=== PATIENT | male | born 1980 | race Caucasian/White ===

== ENCOUNTER 2016-05-17 21:41 | Emergency (ER) | payer OTHER ==
[~2016-05-17] VITALS: Ht 167.6 cm; Wt 65.7 kg
[~2016-05-17 21:41] MED LIST: CHLO1TAB15 PO; DULO60CA44 PO; TOPI50TA16 PO
[2016-05-17 21:51] VITALS: TEMP 36.6; Ht 167.6 cm; Wt 65.7 kg
[2016-05-17] MEDS ORDERED: CITA40TA12 PO (22:10)
[2016-05-17 23:20] LABS: BASO % 0.3 %; BASO ABS # 0.02 K/uL (0-0.2); COMPLETE YES; EOS % 1.8 %; IG% 0.5 %; LYMPH % 32.1 %; LYMPH ABS # 2.01 K/uL (1.2-3.4); MEAN CELL VOLUME 88.8 fL (80-100); MEAN CORPUSCULAR HGB CONC 34.9 g/dl (32-36); MEAN PLATELET VOLUME 10.5 fL (7.4-10.4); NEUT % 54.3 %; PLATELET COUNT 192 K/uL (130-400); RED BLOOD COUNT 5.52 M/uL (4.7-6.1); WHITE BLOOD COUNT 6.26 K/uL (4.8-10.8)
--- NOTE | 2016-05-17 23:38 | EMERGENCY ROOM VISIT NOTE ---
History Report prepared by Ed: Nydia Morgan Under the Supervision of: Dr. Angela Dong M.D. First contact with patient: 23:07 Chief Complaint: MENTAL HEALTH EVALUATION Stated Complaint: [facility]MR History of Present Illness The patient is a 36 year old male who presents to the Emergency Room via police for a mental health evaluation for worsened depression. The patient was recently staying at his friend's house but moved back to his parent's house recently. Tonight, his mother did not want him staying in her house due to his history of drug problems so she took him to stay at [facility]. He did not want to stay at [facility] but his mother would not take him anywhere else to stay. Police were eventually called to the group home. He requested to come to the ER for a mental health evaluation due to feeling depressed. He states that things are not going very well right now for him and he is feeling miserable. The patient has had suicidal thoughts in the past, most recently 6 months ago. He is not currently feeling suicidal or homicidal. He denies any substance use today. Denies recent illnesses or other complaints. 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 A total of 10 systems reviewed and were otherwise negative. Past Medical & Surgical Medical Problems: (1) ALCOHOL ABUSE-UNSPEC (2) ASTHMA, UNSPECIFIED (3) BIPOL I, MOST RECENT EPISODE (OR CURRENT) UNSPECIFIED (4) Bipolar II disorder (5) Hepatitis C (6) OPIOID DEPENDENCE-UNSPEC (7) PNEUMONIA, ORGANISM NOS (8) SUICIDAL IDEATION (9) TOBACCO USE DISORDER Family History Hypertension Social History Smoking Status: Current Every Day Smoker Alcohol Use: heavy Drug Use: heroin, marijuana, other Marital Status: single Housing Status: lives alone Occupation Status: employed Current/Historical Medications Scheduled Citalopram Hydrobromide (Celexa), 40 MG PO QAM Allergies Coded Allergies: No Known Allergies (Unverified , NONE, 05/17/16) Physical Exam Vital Signs Date Time Temp Pulse Resp B/P Pulse Ox O2 Delivery O2 Flow Rate FiO2 05/18/16 07:16 72 16 125/70 95 05/17/16 23:44 74 114/67 96 Room Air 05/17/16 21:51 36.6 79 18 132/87 97 Room Air Physical Exam Vital signs reviewed. General: Well-appearing 36 year old male, in no significant distress. HEENT: No scleral icterus, PERRLA, neck supple. Atraumatic. Cardiovascular: Regular rate and rhythm, no extra sounds. Pulmonary: Clear to auscultation bilaterally, normal work of breathing. Abdomen: Soft, nontender, nondistended, positive bowel sounds. Musculoskeletal: Atraumatic, no peripheral edema. Neurologic: Patient awake alert and oriented x 3, full strength in all 4 extremities. Cranial nerves 2 through 12 grossly intact. Skin: Warm, dry, no rash Psych: No suicidal or homicidal ideation. Medical Decision & Procedures Laboratory Results 05/17/16 22:45 Red Blood Count 5.52, Mean Corpuscular Volume 88.8, Mean Corpuscular Hemoglobin 31.0, Mean Corpuscular Hemoglobin Concent 34.9, Mean Platelet Volume 10.5, Neutrophils (%) (Auto) 54.3, Lymphocytes (%) (Auto) 32.1, Monocytes (%) (Auto) 11.0, Eosinophils (%) (Auto) 1.8, Basophils (%) (Auto) 0.3, Neutrophils # (Auto ) 3.40, Lymphocytes # (Auto) 2.01, Monocytes # (Auto) 0.69, Eosinophils # (Auto ) 0.11, Basophils # (Auto) 0.02 05/17/16 22:45 Test 05/17/16 22:45 White Blood Count 6.26 K/uL (4.8-10.8) Red Blood Count 5.52 M/uL (4.7-6.1) Hemoglobin 17.1 g/dL (14.0-18.0) Hematocrit 49.0 % (42-52) Mean Corpuscular Volume 88.8 fL (80-100) Mean Corpuscular Hemoglobin 31.0 pg (25-34) Mean Corpuscular Hemoglobin Concent 34.9 g/dl (32-36) Platelet Count 192 K/uL (130-400) Mean Platelet Volume 10.5 fL (7.4-10.4) Neutrophils (%) (Auto) 54.3 % Lymphocytes (%) (Auto) 32.1 % Monocytes (%) (Auto) 11.0 % Eosinophils (%) (Auto) 1.8 % Basophils (%) (Auto) 0.3 % Neutrophils # (Auto) 3.40 K/uL (1.4-6.5) Lymphocytes # (Auto) 2.01 K/uL (1.2-3.4) Monocytes # (Auto) 0.69 K/uL (0.11-0.59) Eosinophils # (Auto) 0.11 K/uL (0-0.5) Basophils # (Auto) 0.02 K/uL (0-0.2) RDW Standard Deviation 42.7 fL (36.4-46.3) RDW Coefficient of Variation 13.0 % (11.5-14.5) Immature Granulocyte % (Auto) 0.5 % Immature Granulocyte # (Auto) 0.03 K/uL (0.00-0.02) Anion Gap 10.0 mmol/L (3-11) Est Creatinine Clear Calc Drug Dose 78.2 ml/min Estimated GFR () 90.9 Estimated GFR (Non- 78.4 BUN/Creatinine Ratio 14.8 (10-20) Calcium Level 8.9 mg/dl (8.5-10.1) Total Bilirubin 0.4 mg/dl (0.2-1) Direct Bilirubin 0.1 mg/dl (0-0.2) Aspartate Amino Transf (AST/SGOT) 57 U/L (15-37) Alanine Aminotransferase (ALT/SGPT) 96 U/L (12-78) Alkaline Phosphatase 109 U/L (45-117) Total Protein 7.1 gm/dl (6.4-8.2) Albumin 3.6 gm/dl (3.4-5.0) Salicylates Level < 1.7 mg/dl (2.8-20) Acetaminophen Level < 2 ug/ml (10-30) Ethyl Alcohol mg/dL < 3.0 mg/dl (0-3) Laboratory results per my review. ED Course 2333: Past medical records reviewed. The patient was evaluated in room A5. A complete history and physical examination was performed. 0710: Upon reevaluation, the patient was resting comfortably. I discussed findings with the patient. He verbalized agreement of the treatment plan. The patient was discharged home. Medical Decision Differential diagnosis: Etiologies such as mood disorder, infection, hypoglycemia, electrolyte abnormalities, cardiac sources, intracerebral event, toxicologic, neurologic, as well as others were entertained. This patient was evaluated and appeared to be in no significant distress. Patient was medically cleared and evaluated by mental health. Patient is felt to be stable for discharge. He is not currently suicidal or homicidal. He does have multiple situational stressors. He was given contact information for local homeless shelters as his family does not seem to want to take him in. Patient will return to the ER for worsening of symptoms or any medical concerns. Impression Primary Impression: Mood disorder Scribe Attestation The scribe's documentation has been prepared under my direction and personally reviewed by me in its entirety. I confirm that the note above accurately reflects all work, treatment, procedures, and medical decision making performed by me. Departure Information Dispostion Home / Self-Care Referrals [facility] Patient Instructions [facility] Additional Instructions Diagnosis: Mood disorder Please go to a homeless group home this evening or contact a friend. Follow-up with a primary care physician or [facility]. Outpatient psychiatric follow-up as recommended by mobile crisis. Return to the ER for worsening of symptoms or any medical concerns.
[2016-05-17 23:40] LABS: BUN/CREATININE RATIO 14.8 (10-20); CALCIUM 8.9 mg/dl (8.5-10.1); CREATININE 1.2 mg/dl (0.60-1.40); POTASSIUM 3.6 mmol/L (3.5-5.1)
[2016-05-17 23:42] LABS: ACETAMINOPHEN < 2 ug/ml (10-30)
[2016-05-18 07:16] VITALS: BP 125/70; PULSE 72; O2SAT 95
== END 2016-05-18 07:16 | disposition home or self-care (01) ==
LOC: C.EDB 21:43 → C.EDA 05-18 07:16
DX: F31.81 Bipolar II disorder (principal); F17.200 Nicotine dependence, unspecified, uncomplicated; F10.10 Alcohol abuse, uncomplicated; J45.909 Unspecified asthma, uncomplicated; B19.20 Unspecified viral hepatitis C without hepatic coma; F11.20 Opioid dependence, uncomplicated

== ENCOUNTER 2016-08-26 18:29 | Emergency (ER) | payer OTHER ==
[~2016-08-26] VITALS: Ht 170.2 cm; Wt 53.5 kg
[~2016-08-26 18:29] MED LIST changes: -CHLO1TAB15 PO; +CITA40TA12 PO; -DULO60CA44 PO; -TOPI50TA16 PO
[2016-08-26 18:46] VITALS: TEMP 36.7; Ht 170.2 cm; Wt 53.5 kg
[2016-08-26 18:58] VITALS: O2SAT 94
[2016-08-26] MEDS ORDERED: HALOPERIDOL LACTATE 5 MG/ML 1 ML VIAL IM STA (19:02)
[2016-08-26] MEDS ORDERED: LORAZEPAM 2 MG/ML 1 ML VIAL IM STA (19:02)
--- NOTE | 2016-08-26 19:07 | EMERGENCY ROOM VISIT NOTE ---
History Report prepared by Ed: Tu Kingsley Under the Supervision of: Dr. Boy Savage M.D. First contact with patient: 18:44 Stated Complaint: ANXIETY / POSS. METHADONE INTAKE History of Present Illness The patient is a 36 year old male who presents to the Emergency Room with an altered mental status. The nurse states that the patient lives in [facility] and is currently on probation. She reports that the patient was picked up from a homeless retirement by the police. The nurse notes that at the police station, the patient asked his consular officer for alcohol. She notes that the patient appeared to be under the influence. The nurse reports that when the patient was told that he was going into a cell, he lashed out and began complaining that he needed medical attention. She states that there were track cerna on his left and right AC, and it is suspected the he took methadone. The patient states that it feels like he is losing his mind and he is messed up. He reports that he moved to [place] and lives in a nursing home house. The patient states that he was on his way to a friend's house, but he walked up to the wrong door and that is why he was at the police department. He denies doing anything else, using drugs, using methadone, and using alcohol. The patient reports that he does not know where he is. He states that it feels like someone gave him acid, he is hallucinating, and he is going to pass out. The patient notes that the only medication he takes in Celexa, but he missed some of his doses. He reports that he does not have a history of anxiety. HPI and ROS are limited secondary to the patient's altered mental status. Source of History: patient, nursing staff History Limited By: AMS Review of Systems ROS is limited secondary to his altered mental status. Past Medical & Surgical Medical Problems: (1) ALCOHOL ABUSE-UNSPEC (2) ASTHMA, UNSPECIFIED (3) BIPOL I, MOST RECENT EPISODE (OR CURRENT) UNSPECIFIED (4) Bipolar II disorder (5) Hepatitis C (6) OPIOID DEPENDENCE-UNSPEC (7) PNEUMONIA, ORGANISM NOS (8) SUICIDAL IDEATION (9) TOBACCO USE DISORDER Family History Hypertension Social History Smoking Status: Current Every Day Smoker Alcohol Use: heavy Drug Use: heroin, marijuana, other Marital Status: single Housing Status: lives alone Occupation Status: employed Current/Historical Medications Scheduled Citalopram Hydrobromide (Celexa), 40 MG PO QAM Allergies Coded Allergies: No Known Allergies (Unverified , NONE, 08/26/16) Physical Exam Vital Signs Date Time Temp Pulse Resp B/P Pulse Ox O2 Delivery O2 Flow Rate FiO2 08/27/16 08:54 94 16 134/91 98 08/27/16 07:33 103 16 130/93 98 08/27/16 05:36 82 08/27/16 02:30 80 08/26/16 22:58 84 08/26/16 22:39 81 17 95 08/26/16 22:19 141/102 08/26/16 22:09 90 15 93 08/26/16 22:05 110/62 08/26/16 22:04 81 16 110/62 95 08/26/16 21:39 89 18 93 08/26/16 21:34 87 15 95 08/26/16 21:04 93 18 92 08/26/16 20:34 94 17 94 08/26/16 20:04 102 19 92 08/26/16 19:34 125 22 92 08/26/16 19:29 123 21 144/76 08/26/16 19:24 116 24 08/26/16 19:19 119 86 08/26/16 19:14 117 21 08/26/16 19:09 116 29 94 08/26/16 19:05 144/76 08/26/16 19:04 115 08/26/16 18:58 94 Room Air 08/26/16 18:54 124 20 93 08/26/16 18:49 123 16 97 08/26/16 18:49 124 08/26/16 18:46 36.7 116 18 132/87 94 Room Air 08/26/16 18:44 120 13 95 08/26/16 18:39 119 18 90 08/26/16 18:35 132/87 Physical Exam GENERAL: Patient awake, alert, oriented x 3. Patient follows commands. Patient does not appear toxic. Patient is adequately hydrated and well- nourished. Appears agitated and to be hallucinating. SKIN: No erythema, pallor, cyanosis or rash HEENT: Normal head, pupils equal, reactive to light and accommodation. Oral cavity and posterior pharynx appear normal. Neck: Without adenopathy, no neck vein distention. LUNGS: Clear to auscultation. No wheezes, no rales, no rhonchi. HEART: Tachycardic rate. No murmurs. No gallops. No rubs ABDOMEN: No masses, no rebound, no hepatomegaly or splenomegaly. Umbilical hernia. GENITALIA: No signs of trauma or infection to the penis or scrotum, no penile discharge. EXTREMITIES: No signs of trauma or infection. NEUROLOGIC: No focal deficit, uses all extremities, hallucinating, agitated. PSYCHIATRIC: Patient is awake alert but appears to be hallucinating. The patient is confused. He is very agitated. The patient is currently not suicidal but does appear despondent. Medical Decision & Procedures ER Provider Diagnostic Interpretation: X ray results are stated below per my interpretation and the radiologist's interpretation. CHEST ONE VIEW PORTABLE HISTORY: altered mental status COMPARISON: Chest 01/19/2015. FINDINGS: The lungs are clear. Cardiac silhouette is normal in size. No pleural effusions. No pneumothorax. Old, healed left-sided rib fractures. IMPRESSION: No acute process. Electronically signed by: Alfredito Pleitez M.D. 08/26/2016 7:38 PM Dictated Date/Time: 08/26/2016 7:37 PM Laboratory Results 08/26/16 19:23 Red Blood Count 5.32, Mean Corpuscular Volume 86.3, Mean Corpuscular Hemoglobin 30.6, Mean Corpuscular Hemoglobin Concent 35.5, Mean Platelet Volume 9.1, Neutrophils (%) (Auto) 77.2, Lymphocytes (%) (Auto) 15.0, Monocytes (%) (Auto) 6.9, Eosinophils (%) (Auto) 0.5, Basophils (%) (Auto) 0.1, Neutrophils # (Auto) 7.22, Lymphocytes # (Auto) 1.40, Monocytes # (Auto) 0.65, Eosinophils # (Auto) 0.05, Basophils # (Auto) 0.01 08/26/16 19:23 Test 08/26/16 18:57 08/26/16 19:23 Urine Color YELLOW Urine Appearance CLEAR (CLEAR) Urine pH 6.0 (4.5-7.5) Urine Specific [place] 1.010 (1.000-1.030) Urine Protein NEG (NEG) Urine Glucose (UA) NEG (NEG) Urine Ketones TRACE (NEG) Urine Occult Blood NEG (NEG) Urine Nitrite NEG (NEG) Urine Bilirubin NEG (NEG) Urine Urobilinogen NEG (NEG) Urine Leukocyte Esterase NEG (NEG) Urine Opiates Screen NEG (NEG) Urine Methadone, Qualitative NEG (NEG) Urine Barbiturates NEG (NEG) Urine Phencyclidine (PCP) Level NEG (NEG) Ur Amphetamine/Methamphetamine POS (NEG) MDMA (Ecstasy) Screen POS (NEG) Urine Benzodiazepines Screen NEG (NEG) Urine Cocaine Metabolite POS (NEG) Urine Marijuana (THC) NEG (NEG) White Blood Count 9.36 K/uL (4.8-10.8) Red Blood Count 5.32 M/uL (4.7-6.1) Hemoglobin 16.3 g/dL (14.0-18.0) Hematocrit 45.9 % (42-52) Mean Corpuscular Volume 86.3 fL (80-100) Mean Corpuscular Hemoglobin 30.6 pg (25-34) Mean Corpuscular Hemoglobin Concent 35.5 g/dl (32-36) Platelet Count 239 K/uL (130-400) Mean Platelet Volume 9.1 fL (7.4-10.4) Neutrophils (%) (Auto) 77.2 % Lymphocytes (%) (Auto) 15.0 % Monocytes (%) (Auto) 6.9 % Eosinophils (%) (Auto) 0.5 % Basophils (%) (Auto) 0.1 % Neutrophils # (Auto) 7.22 K/uL (1.4-6.5) Lymphocytes # (Auto) 1.40 K/uL (1.2-3.4) Monocytes # (Auto) 0.65 K/uL (0.11-0.59) Eosinophils # (Auto) 0.05 K/uL (0-0.5) Basophils # (Auto) 0.01 K/uL (0-0.2) RDW Standard Deviation 41.4 fL (36.4-46.3) RDW Coefficient of Variation 13.2 % (11.5-14.5) Immature Granulocyte % (Auto) 0.3 % Immature Granulocyte # (Auto) 0.03 K/uL (0.00-0.02) Anion Gap 8.0 mmol/L (3-11) Est Creatinine Clear Calc Drug Dose 65.6 ml/min Estimated GFR () 90.9 Estimated GFR (Non- 78.4 BUN/Creatinine Ratio 10.7 (10-20) Calcium Level 9.2 mg/dl (8.5-10.1) Total Bilirubin 1.0 mg/dl (0.2-1) Aspartate Amino Transf (AST/SGOT) 77 U/L (15-37) Alanine Aminotransferase (ALT/SGPT) 147 U/L (12-78) Alkaline Phosphatase 99 U/L (45-117) Total Creatine Kinase 147 U/L (39-308) Total Protein 8.1 gm/dl (6.4-8.2) Albumin 4.5 gm/dl (3.4-5.0) Globulin 3.6 gm/dl (2.5-4.0) Albumin/Globulin Ratio 1.3 (0.9-2) Ethyl Alcohol mg/dL < 3.0 mg/dl (0-3) Laboratory results as stated above per my review. Medications Administered Medications (Trade) Dose Ordered Sig/Sumeet Route Start Time Stop Time Status Last Admin Dose Admin Haloperidol Lactate (Haldol Inj) 5 mg NOW STAT IM 08/26/16 19:02 08/26/16 19:06 DC 08/26/16 19:25 5 MG Lorazepam (Ativan Inj) 2 mg NOW STAT IM 08/26/16 19:02 08/26/16 19:06 DC 08/26/16 19:24 2 MG ECG Indication: altered mental status Rate (beats per minute): 121 Rhythm: sinus tachycardia Findings: no acute ischemic change, no ectopy ED Course 1843: Past medical records reviewed. The patient was evaluated in room A07. A complete history and physical examination was performed. 1854: I reviewed the patient's records, and he has a history of multiple heroine overdoses and depression. 1901: Ordered Ativan Inj 2mg IM, Haldol Inj 5mg IM. 1947: I reevaluated the patient. He is no longer hallucinating and is much calmer. The patient has yet to provide a urine sample. 2010: I discussed the patient's case with the patient's mother. The patient is calmer. He is willing to enter the hospital for psychiatric help, if he meets criteria for admission. Medical Decision I considered multiple diagnoses including: medication reaction, withdraw, schizophrenia, illicit drug use. Medication Reconciliation: I attest that I have personally reviewed the patient' s current medication list. The patient arrived extremely agitated and hallucinating. According to the patient's mother he has not been sleeping recently. The patient states that he was given methamphetamine. That is certainly possible and consistent with his physical findings. The patient has a prior history of bipolar. He has been taking his Celexa intermittently. The patient was given 5 mg of Haldol along with 2 mg of Ativan intramuscularly. Patient became much more calm and lucid. The patient remains depressed. Blood work was obtained. Please see above. Toxicology screening is pending. I signed the patient out to Dr. Emmanuel at 20: 20. Disposition is pending. Impression Primary Impression: Agitation Additional Impression: Hallucinations Scribe Attestation The scribe's documentation has been prepared under my direction and personally reviewed by me in its entirety. I confirm that the note above accurately reflects all work, treatment, procedures, and medical decision making performed by me. Departure Information Referrals No Doctor, Assigned (PCP) Problem Qualifiers
[2016-08-26 19:35] LABS: BASO % 0.1 %; BASO ABS # 0.01 K/uL (0-0.2); COMPLETE YES; EOS % 0.5 %; HEMATOCRIT 45.9 % (42-52); IG% 0.3 %; MEAN CELL VOLUME 86.3 fL (80-100); MEAN CORPUSCULAR HEMOGLOBIN 30.6 pg (25-34); MEAN CORPUSCULAR HGB CONC 35.5 g/dl (32-36); MEAN PLATELET VOLUME 9.1 fL (7.4-10.4); MONO % 6.9 %; NEUT % 77.2 %; PLATELET COUNT 239 K/uL (130-400); RED BLOOD COUNT 5.32 M/uL (4.7-6.1); WHITE BLOOD COUNT 9.36 K/uL (4.8-10.8)
--- NOTE | 2016-08-26 19:39 | DIAGNOSTIC IMAGING REPORT ---
CHEST ONE VIEW PORTABLE HISTORY: altered mental status COMPARISON: Chest 01/19/2015. FINDINGS: The lungs are clear. Cardiac silhouette is normal in size. No pleural effusions. No pneumothorax. Old, healed left-sided rib fractures. IMPRESSION: No acute process. Electronically signed by: Alfredito Pleitez M.D. 08/26/2016 7:38 PM Dictated Date/Time: 08/26/2016 7:37 PM
[2016-08-26 19:52] LABS: BUN/CREATININE RATIO 10.7 (10-20); CALCIUM 9.2 mg/dl (8.5-10.1); CREATININE 1.2 mg/dl (0.60-1.40); POTASSIUM 4.2 mmol/L (3.5-5.1)
[2016-08-26 19:55] LABS: ALB/GLOB RATIO 1.3 (0.9-2)
[2016-08-26 22:32] LABS: URINE APPEARANCE CLEAR (CLEAR); URINE BILIRUBIN NEG (NEG); URINE COLOR YELLOW; URINE NITRITE NEG (NEG); UROBILINOGEN NEG (NEG); ZZUR CULT IF INDIC CLEAN CATCH NO
[2016-08-26 22:37] LABS: MANUAL MICROSCOPIC REQUIRED? NO; REVIEW REQ? NO
[2016-08-26 23:35] LABS: BENZODIAZEPINE, URINE NEG (NEG); COCAINE,URINE POS (NEG); PHENCYCLIDINE, URINE NEG (NEG)
--- NOTE | 2016-08-27 01:56 | EMERGENCY ROOM VISIT NOTE ---
ED Visit Note First contact with patient: 20:29 This patient was signed out to me by Dr. Savage pending urine tox screen and mental health evaluation. The patient did receive Ativan and Haldol by Dr. Savage due to agitation. I did attempt to assess the patient when he was signed out to me but the patient was very somnolent and was unable to answer any questions. I did speak to his mother who felt that the patient needed to be hospitalized. According to the shoe parts caser he was making suicidal statements at the retirement house. The staff there were willing to fill out a 302 petition. Jonna from [facility] did attempt to assess the patient but he was still rather somnolent and could not be evaluated properly. The patient was signed out to Dr. Jaquez pending mental health evaluation and placement in a psychiatric facility.
--- NOTE | 2016-08-27 05:28 | EMERGENCY ROOM VISIT NOTE ---
ED Visit Note First contact with patient: 02:15 This case was signed up to me at change of shift by Dr. Emmanuel. The patient is currently sleeping. He had been sedated with Haldol and Ativan. Once the patient is more awake, he will be evaluated by [facility] for inpatient psychiatric care. 0525: The patient was finally awake enough to speak with him. He does admit to feeling increasingly depressed and is requesting inpatient psychiatric care. He does have a history of depression and one previous suicide attempt in October 2008 by overdose. The patient is not aware of the events of the evening. He was cooperative on my exam. He is willing to speak with staff from [facility] for further evaluation for inpatient psychiatric care. [facility] will be called for further evaluation involuntary admission. 0630: The case will be signed out to Dr. Resendez at change of shift pending the evaluation of [facility].
[2016-08-27 08:54] VITALS: BP 134/91; PULSE 94; O2SAT 98
--- NOTE | 2016-08-27 12:36 | EMERGENCY ROOM VISIT NOTE ---
ED Visit Note First contact with patient: 07:13 36 yr old male arrives for evaluation of acute altered mental status after doing methamphetamines. Initially seen last evening and heavily sedated to calm him down. Signed out to me by Dr Jaquez awaiting mental health evaluation. On my evaluation patient denies suicidal ideation, states he wishes discharge/ go to intermediate. Denies plan to harm self. There is no 302 on file and the [facility] worker has contacted person from last night that reportedly would 302 patient and she denies any 302 petition wish nor criteria. Patient states he feels safe going to intermediate. He agrees to return if worsening or if thoughts of harm to self/others develop. [facility]charged to [facility].
[2016-08-31 07:45] LABS: COCAINE, URINE 12600 NG/ML (CUTOFF=100)
== END 2016-08-27 08:55 | disposition home or self-care (01) ==
LOC: EDBD 18:29 → C.EDA 18:30
DX: R45.1 Restlessness and agitation (principal); R44.3 Hallucinations, unspecified; F31.81 Bipolar II disorder; F10.10 Alcohol abuse, uncomplicated; B19.20 Unspecified viral hepatitis C without hepatic coma; F11.20 Opioid dependence, uncomplicated; F17.200 Nicotine dependence, unspecified, uncomplicated; F12.90 Cannabis use, unspecified, uncomplicated; J45.909 Unspecified asthma, uncomplicated